=== PATIENT | female | born 1965 | race Two or more races ===

== ENCOUNTER 2024-08-23 15:08 | Emergency (ER) | payer MEDICAID, SELFPAY ==
[2024-08-23 15:14] VITALS: PULSE 84; RESP 20; O2SAT 99; BMI 42.9
[2024-08-23 15:41] VITALS: BP 166/99; PULSE 88; RESP 18; TEMP 36.9; O2SAT 98
--- NOTE | 2024-08-23 15:52 | XR_ITS ---
Examination: CT lumbar spine, without contrast. 2-D sagittal reconstructions. 2-D coronal reconstructions. 3-D reconstructions. Date and time of exam:August 23, 2024 1606 hrs. Indications: Sudden onset lower back pain today CTDI: vol (mGy):34.8 DLP: (mGycm):996 Technique: Multiple 1.25 mm axial sections of the lumbar spine have been obtained. 2-D sagittal and coronal reconstructions have been obtained. 3-D reconstructions have been obtained. Low dose protocols were performed. One or more of the following dose reduction techniques were used; automated exposure control, adjustment of the mA and/or KV according to patient size, use of iterative reconstruction technique. Findings: Grade 1 anterolisthesis L4 on L5 Moderate disc narrowing L4-L5 Lumbar pedicles laminated transverse and posterior spinous processes intact L5-S1 7 mm partially extruded central lumbar disc bulge displacing both the right and left S1 nerve roots L4-L5 severe overall spinal stenosis, axial image 91, secondary to the grade 1 anterolisthesis, as well analysis 6 mm central 6 mm left foraminal and 10 mm right foraminal disc bulges producing severe right L4 ganglionic compression L3-L4 no disc protrusion L2-L3 no disc protrusion L1-L2 no disc protrusion Impression: No lumbar fracture L5-S1 7 mm partially extruded central lumbar disc displacing both the right and left S1 nerve roots L4-L5 severe overall spinal stenosis, including severe right L4 ganglionic compression As clinically warranted, MRI lumbar spine without contrast follow-up would best assess full extent of acquired spinal stenosis
--- NOTE | 2024-08-23 15:53 | PD.EDRME ---
Rapid Medical Screening Exam RME Arrival date/time: 08/23/24 15:08 59-year-old female presents to the emergency department via EMS with complains of lower back pain Chief Complaint: Back Pain/Injury Time Seen by Provider: 08/23/24 15:33 Vital signs: Vital Signs Temperature 98.5 F 08/23/24 15:41 Pulse Rate 88 08/23/24 15:41 Respiratory Rate 18 08/23/24 15:41 Blood Pressure 166/99 H 08/23/24 15:41 Pulse Oximetry (%) 98 08/23/24 15:41 Oxygen Delivery Method Room Air 08/23/24 15:41
[2024-08-23] MEDS: KETOROLAC INJ 60 MG/2 ML VIAL IM (15:59)
[2024-08-23] MEDS: DIAZEPAM 5 MG TABLET 10 MG PO (15:59)
[2024-08-23 16:39] LABS: Basophils % (Auto) 0 % (0-2.5); Eosinophils # (Auto) 0.1 Thou/mm3 (0.0-0.5); Eosinophils % (Auto) 1 % (0-10); Hematocrit 43.9 % (36.0-46.0); Hemoglobin 15.2 g/dL (12.0-16.0); Immature Granulocytes % (Auto) 0 % (0-0); Immature Granulocytes Auto 0.03 Thou/mm3 (0.00-0.00); Lymphocytes # (Auto) 1.7 Thou/mm3 (1.0-4.8); Lymphocytes % (Auto) 23 % (10-50); Mean Corpuscular HGB Conc 34.6 g/dl (31.0-37.0); Mean Corpuscular Hemoglobin 30.3 pg (25.0-35.0); Mean Corpuscular Volume 88 fL (80-100); Monocytes # (Auto) 0.6 Thou/mm3 (0.0-0.8); Monocytes % (Auto) 8 % (0-12); Neutrophils # (Auto) 4.9 Thou/mm3 (1.8-7.7); Neutrophils % (Auto) 67 % (37-80); Nucleated Red Blood Cell % 0 /100 WBC (0); Platelet Count 210 Thou/mm3 (140-440); RDW Standard Deviation 41.5 fL (36.4-46.3); Red Blood Count 5.01 Miln/mm3 (4.00-5.20); White Blood Count 7.3 Thou/mm3 (3.6-11.0)
[2024-08-23 16:54] LABS: Alanine Aminotransferase 31 U/L (10-49); Albumin, Serum 4.3 gm/dL (3.5-5.0); Albumin/Globulin Ratio 1.3 (1.2-2.2); Alkaline Phosphatase 93 U/L (46-116); Anion Gap 9 (7-16); Aspartate Amino Transferase 30 U/L (0-34); BUN/Creatinine Ratio 18 Ratio (12-20); Bilirubin,Total 0.4 mg/dL (0.3-1.2); Blood Urea Nitrogen 14 mg/dL (9-23); Calcium 9.6 mg/dL (8.3-10.6); Calcium (Corrected) 9.6 mg/dL (8.5-10.1); Carbon Dioxide 29.1 mMol/L (20.0-31.0); Chloride 101 mMol/L (98-107); Creatinine (Component) 0.8 mg/dL (0.6-1.3); Estimated Creatinine Clearance 95.8 mL/min (>60); Globulin 3.3 gm/dL (2.3-3.5); Glucose 112 mg/dL (74-106); Osmolality,Calculated 279 (275-295); Potassium 3.7 mMol/L (3.4-5.1); Sodium 139 mMol/L (136-145); Total Protein 7.6 gm/dL (5.7-8.2); eGFR > 60 See Note
[2024-08-23 16:54] LABS: Collection Type, Urine Clean Catch
[2024-08-23 17:02] LABS: Bilirubin,Urine Negative (Negative); Blood,Urine Negative (Negative); Clarity,Urine Clear (Clear/Hazy); Color,Urine Yellow (Lt Yel-Yel); Glucose, Urine 4+ (Negative); Ketones,Urine Negative (Negative); Leukocyte Esterase,Urine Positive (Negative); Nitrite,Urine Negative (Negative); Protein,Urine Trace (Neg - Trace); RBC,Urine 13 /hpf (0-3); Specific Gravity,Urine 1.028 (1.001-1.035); Squamous Epithelial Cell,Urine 3 /hpf (0-5); Urobilinogen,Urine Negative mg/dL (0.0-1.0); WBC,Urine 12 /hpf (0-5)
[2024-08-23 17:08] LABS: Culture Indicated,Urine Yes
[2024-08-23 18:31] VITALS: BP 138/102; PULSE 92; RESP 16; TEMP 36.7; O2SAT 95
--- NOTE | 2024-08-23 18:38 | EDNOTE_ITS ---
ED General RME/HPI General Chief complaint: Back Pain/Injury Stated complaint: LOW BACK PAIN Time Seen by Provider: 08/23/24 15:33 Arrival date/time: 08/23/24 15:08 CC: Low back pain HPI onset 4 days ago with progressive increase in severity in the past 48 hours. Patient denies any bowel or bladder symptoms saddle anesthesia numbness, tingling, in the lower extremities. No prior history of similar events. The patient denies any lifting falls or repetitive motion. Not relieved with OTC medications. Patient has a history of diabetes and hypertension takes gabapentin for chronic left knee pain. Pain is localized on the right side in the right low back radiating down to the right buttock and upper portion of the back of the right leg. Pain is an 8 to a 9 on a 10 scale. RME / HPI RME / HPI narrative: 08/23/24 15:08 59-year-old female presents to the emergency department via EMS with complains of lower back pain Related Data Home Medications ?Medication ?Instructions ?Recorded ?Confirmed Calcium Carbonate/Vitamin D3 2 tab PO BID ##0 08/26/14 (Calcium + D 600 Mg Tablet) Losartan Potassium * (COZAAR *) 100 mg PO QDAY #0 tabs 08/26/14 hydrochlorothiazide 25 mg tablet 25 mg PO QAM #0 tabs 08/26/14 letrozole 2.5 mg tablet 2.5 mg PO QDAY #0 tabs 08/26 Previous Rx's ?Medication ?Instructions ?Recorded Hydrocodone/Acetaminophen * (NORCO 1 tab PO Q6HR PRN s evere pain #40 06/15/15 10/325 *) tabs cyclobenzaprine 10 mg tablet 10 mg PO BID #20 tabs prednisone 20 mg tablet See Taper PO BID 3 days #6 t abs 08/23/24 Allergies Allergy/AdvReac Type Severity Reaction Status Date / Time albuterol Allergy Severe Swelling Verified 08/23/24 15:18 Review of Systems Review of Systems Narrative Review of Systems: GEN: No fever, no chills, no weight loss EYES: No discharge, no visual changes, no pain HEENT: No ear pain, no congestion, no sore throat PULM: No shortness of breath, no cough, no congestion CV: No chest pain, no dyspnea on exertion, no palpitations GI: No nausea, no vomiting, no diarrhea, no pain, no constipation : No frequency, no urgency, no dysuria MUSC/SKEL: No joint pain, + back pain SKIN: No rash PSYCH: No hallucinations, no depression HEME/LYMPH: No easy bleeding or bruising tendencies NEURO: No weakness, no headache ED Exam Narrative Physical exam: [General: Morbidly obese in mild discomfort but not in any acute distress Head normocephalic HEENT: Within acceptable limits Neck is supple nontender Chest equal chest rise nontender to palpation Respiratory: Clear to auscultation no wheezes crackles or rubs CV: Rate rhythm is regular no murmurs rubs or clicks Abdomen is distended secondary to body habitus soft nontender no masses positive bowel sounds all 4 quadrants Back: Right lumbar paraspinal tenderness with palpation. No left lumbar paraspinal tenderness no mid or upper back tenderness with palpation. Skin: Intact no petechiae rash induration ulceration or crepitus Extremities: Moving all extremity against resistance cap refill less than 2 seconds neurosensory intact Neuro: Awake alert oriented x3 Glascow coma 15 no focal deficits] Course Quality Measures none Orders Category Date Time Status CT lumbar spine wo con Stat Exams 08/23/24 15:52 Completed CBC Stat Lab 08/23/24 16:26 Completed Comprehensive Metabolic Panel Stat Lab 08/23/24 16:26 Completed UA, C/S IF [Urinalysis, C/S if Indicated] Stat Lab 08/23/24 16:41 Completed Urine Culture Stat Lab 08/23/24 16:41 Received Diazepam [Valium] Med 08/23/24 15:52 Discontinued 10 mg PO X1 ONE Ketorolac Inj [Toradol Inj] Med 08/23/24 15:52 Discontinued 60 mg IM X1 ONE oxyCODONE/APAP 5/325 [Percocet 5/325] Med 08/23/24 18:38 Once 1 tab PO X1 ONE Vital Signs Vital signs: Vital Signs Temperature 98.5 F 08/23/24 15:41 Pulse Rate 88 08/23/24 15:41 Respiratory Rate 18 08/23/24 15:41 Blood Pressure 166/99 H 08/23/24 15:41 Pulse Oximetry (%) 98 08/23/24 15:41 Oxygen Delivery Method Room Air 08/23/24 15:41 [facility] Patient data External records reviewed:: [facility] previous records Clinical information provided by:: patient Social determinants that could affect healthcare access:: none Patient has the following chronic illnesses:: Morbid obesity diabetes hypertension chronic pain How is presenting disease/condition affected by chronic disease/condition?: e xacerbated by Evaluation data The following diagnostics were reviewed and interpreted by me:: lab results and radiology exam(s) Lab and/or radiology exams considered but not ordered:: CBC shows no leukocytosis anemia thrombocytopenia CMP shows a glucose of 112 no other electrolyte imbalances renal impairment transaminitis or T. bili elevation Urine shows 4+ glucose no other acute findings suggestive of a UTI. CT shows no lumbar fracture L5-S1 central lumbar disc displacement L4-L5 severe overall spinal stenosis this as interpreted by me read by radiology. Interpretation Summary: Sciatica acute back pain Medications Medications considered but not ordered:: None Medication administrations:: Medication Administration History Discontinued Medications Diazepam (Diazepam 5 Mg Tablet) 10 mg PO X1 ONE Stop: 08/23/24 15:53 Last Admin: 08/23/24 15:59 Dose: 10 mg Documented By: JAYNE Ketorolac Tromethamine (Ketorolac Inj 60 Mg/2 Ml Vial) 60 mg IM X1 ONE Stop: 08/23/24 15:53 Last Admin: 08/23/24 15:59 Dose: 60 mg Documented By: JAYNE None Consultations Consultation(s) initiated? (list below): No Diagnosis Differential Diagnosis ED Complaint MDM: Sciatica, nerve impingement, lumbar compression fracture Most likely diagnosis given after review of the tests above:: Sciatica, low back pain Admission Indicated Admission indicated?: not indicated Explain why admission is indicated or not indicated:: Stable for outpatient follow-up Admission Request Was there a request for admission?: No Disposition Plan Disposition Plan: Discharge Discharge Attestation Discharge Attestation: The patient and all family members were given an opportunity to ask questions and understood the discharge instructions. Discharge instructions specifically effects, indications for sooner follow up or return to the emergency department, and the expected course of current diagnosis. Patient condition: Stable Medical Decision Making Differential Diagnosis Differential Diagnosis: Sciatica, nerve impingement, lumbar compression fracture Lab Data 08/23/24 16:26 08/23/24 16:26 Labs: Lab Results 08/23/24 08/23/24 Range/Units 16:26 16:41 WBC 7.3 (3.6-11.0) Thou/mm3 RBC 5.01 (4.00-5.20) Miln/mm3 Hgb 15.2 (12.0-16.0) g/dL Hct 43.9 (36.0-46.0) % MCV 88 (80-100) fL MCH 30.3 (25.0-35.0) pg MCHC 34.6 (31.0-37.0) g/dl RDW Std Deviation 41.5 (36.4-46.3) fL Plt Count 210 (140-440) Thou/mm3 Neut % (Auto) 67 (37-80) % Lymph % (Auto) 23 (10-50) % [place] % (Auto) 8 (0-12) % Eos % (Auto) 1 (0-10) % Baso % (Auto) 0 (0-2.5) % Neut # (Auto) 4.9 (1.8-7.7) Thou/mm3 Lymph # (Auto) 1.7 (1.0-4.8) Thou/mm3 [place] # (Auto) 0.6 (0.0-0.8) Thou/mm3 Eos # (Auto) 0.1 (0.0-0.5) Thou/mm3 Baso # (Auto) 0.0 (0.0-0.2) Thou/mm3 Immature Gran # (Auto) 0.03 H (0.00-0.00) Thou/mm3 Absolute Nucleated RBC 0.00 (0.00-0.00) Thou/mm3 Immature Gran % 0 (0-0) % Nucleated RBC % 0 (0) /100 WBC Sodium 139 (136-145) mMol/L Potassium 3.7 (3.4-5.1) mMol/L Chloride 101 (98-107) mMol/L Carbon Dioxide 29.1 (20.0-31.0) mMol/L Anion Gap 9 (7-16) BUN 14 (9-23) mg/dL Creatinine 0.8 (0.6-1.3) mg/dL Estim Creat Clear Calc 95.8 (>60) mL/min eGFR > 60 (60 - ) See Note BUN/Creatinine Ratio 18 (12-20) Ratio Glucose 112 H (74-106) mg/dL Calculated Osmolality 279 (275-295) Calcium 9.6 (8.3-10.6) mg/dL Corrected Calcium 9.6 (8.5-10.1) mg/dL Total Bilirubin 0.4 (0.3-1.2) mg/dL AST 30 (0-34) U/L ALT 31 (10-49) U/L Alkaline Phosphatase 93 (46-116) U/L Total Protein 7.6 (5.7-8.2) gm/dL Albumin 4.3 (3.5-5.0) gm/dL Globulin 3.3 (2.3-3.5) gm/dL Albumin/Globulin Ratio 1.3 (1.2-2.2) Ur Collection Type Clean Catch Urine Color Yellow (Lt Yel-Yel) Urine Clarity Clear (Clear/Hazy) Urine pH 6.0 (5.0-7.0) Ur Specific [place] 1.028 (1.001-1.035) Urine Protein Trace (Neg - Trace) Urine Glucose (UA) 4+ A (Negative) Urine Ketones Negative (Negative) Urine Blood Negative (Negative) Urine Nitrite Negative (Negative) Urine Bilirubin Negative (Negative) Urine Urobilinogen (Auto) Negative (0.0-1.0) mg/dL Ur Leukocyte Esterase Positive (Negative) Urine RBC 13 H (0-3) /hpf Urine WBC 12 H (0-5) /hpf Ur Squamous Epith Cells 3 (0-5) /hpf Urine Bacteria None (None) Ur Culture Indicated? Yes Discharge Plan Plan Patient Disposition: HOME (Self Care) Patient condition on transfer: Stable Prescriptions/Referrals Prescriptions/Med Rec: New cyclobenzaprine 10 mg tablet 10 mg PO BID Qty: 20 0RF prednisone 20 mg tablet See Taper PO BID 3 Days Qty: 6 0RF Taper: Prednisone Taper 20 mg DAILY for 2 Days and 0 Hour 10 mg DAILY for 2 Days and 0 Hour 5 mg DAILY for 7 Days and 0 Hour No Action hydrochlorothiazide 25 MG tablet 25 mg PO QAM Qty: 0 letrozole 2.5 MG tablet 2.5 mg PO QDAY Qty: 0 Calcium Carbonate/Vitamin D3 (Calcium + D 600 Mg Tablet) 1 EACH tablet 2 tab PO BID Qty: 0 Losartan Potassium * (COZAAR *) 100 MG tablet 100 mg PO QDAY Qty: 0 Hydrocodone/Acetaminophen * (NORCO 10/325 *) 1 TAB tablet 1 tab PO Q6HR PRN (Reason: severe pain) Qty: 40 0RF Referrals: No Primary/Family,Physician [Primary Care Provider] - In 1 week Roldan Quintana MD [Physician] - In 1 week Problem List Clinical Impression: Low back pain, Lumbar radiculopathy, Morbid obesity with BMI of 40.0-44.9, adult Patient/Caregiver Discharge Instructions Other Activity Instructions:: Take the medication as prescribed for temporary low back relief avoid heavy lifting, repetitive motion or picking items up from off the ground without using your legs. Follow-up with your primary care provider for outpatient referral consider outpatient MRI as necessary. Education Materials: Back Safety: Lifting, Back Safety: Poor Posture Hurts, ED Back and Neck Pain, General Print Language: [place]i Stand Alone Forms: Loren Award Info., Patient Portal Info Letter, Work/School Release PA/CORRECTIONAL GUARD Supervising Physician PA/CORRECTIONAL GUARD Supervising Physician: Paul Hackett ENP
[2024-08-23] MEDS: oxyCODONE/APAP 5/325 TABLET 1 TAB PO (18:41)
== END 2024-08-23 19:02 | disposition home or self-care (01) ==
PROVIDERS: Nurse Practitioner Primary Care; Emergency Provider Emergency Medicine
DX: M51.16 Intervertebral disc disorders with radiculopathy, lumbar region (principal); M48.061 Spinal stenosis, lumbar region without neurogenic claudication; E66.01 Morbid (severe) obesity due to excess calories; Z68.41 Body mass index [BMI] 40.0-44.9, adult
CPT/HCPCS: 36415; 72131; 80053; 81001; 85025; 87086; 96372; 99284; J1885; A9270